=== PATIENT | female | born 1975 | race Caucasian/White ===

== ENCOUNTER 2018-11-14 22:32 | Emergency (ER) | payer MEDICARE, OTHER ==
[~2018-11-14] VITALS: Ht 162.6 cm; Wt 152.4 kg
[2018-11-14 22:33] VITALS: Ht 162.6 cm; Wt 152.4 kg
[2018-11-15 00:50] LABS: BASOPHIL % 0.3 % (0-2); PLATELET COUNT 304 x10^3mcL (130-400)
[2018-11-15 00:51] LABS: RED CELL DISTRIBUTION WIDTH 16.5 % (11.5-14.5)
[2018-11-15 00:55] LABS: CALCIUM 8.8 mg/dL (8.5-10.1); CARBON DIOXIDE 24.7 mmol/L (21-32); CHLORIDE SERUM 101 mmol/L (98-107); CREATININE SERUM 0.7 mg/dL (0.6-1.0); GFR1 > 60 mL/min; GLUCOSE SERUM 131 mg/dL (74-106); SODIUM SERUM 136 mmol/L (136-145)
[2018-11-15 00:59] LABS: ALKALINE PHOSPHATASE 87 U/L (46-116); ALT/SGPT 25 U/L (14-59); AST/SGOT 15 U/L (15-37); BILIRUBIN TOTAL 0.3 mg/dL (0.20-1.00); LIPASE 114 IU/L (73-393); TOTAL PROTEIN, SERUM 7.8 g/dL (6.4-8.2)
[2018-11-15 02:55] VITALS: BP 131/58
[2018-11-15 03:05] LABS: microscopic required? NO
[2018-11-15 03:29] LABS: UA SPECIFIC GRAVITY >=1.030 (1.005-1.035); urine erythrocyte NEGATIVE (NEGATIVE)
== END 2018-11-15 02:55 | disposition home or self-care (01) ==
LOC: ED 22:32
PROVIDERS: Student in an Organized Health Care Education/Training Program
DX: K29.70 Gastritis, unspecified, without bleeding (principal); E27.9 Disorder of adrenal gland, unspecified; F32.9 Major depressive disorder, single episode, unspecified
CPT/HCPCS: J2270; J2405; J7030